=== PATIENT | female | born 1995 | race Caucasian/White ===

== ENCOUNTER 2019-07-18 08:48 | Emergency (ER) | payer OTHER ==
[2019-07-18 08:53] VITALS: TEMP 97.7
--- NOTE | 2019-07-18 09:08 | ED ---
Female Urogenital HPI - General Chief complaint: Urogenital Stated complaint: UTI Time Seen by Provider: 07/18/19 08:54 Source: patient, RN notes reviewed Mode of arrival: ambulatory Limitations: no limitations - History of Present Illness Initial comments: 24-year-old female presents emergency Department with chief complaint of dysuria. Patient states that she has very frequent and urgency urinating symptoms. Patient reports that she's had some flank pain that is intermittent. Denies any current nausea vomiting diarrhea constipation no fevers or chills denies any chance . Last mental cycle was 3 weeks ago. Patient states she was treated in June for urinary tract infection also. Patient denies any vaginal discharge, vaginal bleeding. - Related Data Home Medications Medication Instructions Recorded Confirmed 78/Iron/Folate 1/Dha 1 each PO DAILY 05/12/16 07/31/16 [Prenate Dha Softgel] Ferrous Sulfate [Iron (65 MG 325 mg PO DAILY 07/31/16 07/31/16 Elemental)] Previous Rx's Medication Instructions Recorded Cephalexin [Keflex] 500 mg PO Q8HR #30 cap 07/18/19 Allergies Allergy/AdvReac Type Severity Reaction Status Date / Time No Known Allergies Allergy Verified 07/18/19 08:53 Review of Systems ROS Statement: Those systems with pertinent positive or pertinent negative responses have been documented in the HPI. ROS Other: All systems not noted in ROS Statement are negative. Past Medical History Past Medical History: No Reported History History of Any Multi-Drug Resistant Organisms: None Reported Past Surgical History: No Surgical Hx Reported Past Anesthesia/Blood Transfusion Reactions: No Reported Reaction Past Psychological History: No Psychological Hx Reported Smoking Status: Former smoker Past Alcohol Use History: Occasional Past Drug Use History: None Reported - Past Family History Father Family Medical History: No Reported History General Exam Limitations: no limitations General appearance: alert, in no apparent distress Head exam: Present: atraumatic, normocephalic, normal inspection Eye exam: Present: normal appearance, PERRL, EOMI. Absent: scleral icterus, conjunctival injection, periorbital swelling Respiratory exam: Present: normal lung sounds bilaterally. Absent: respiratory distress, wheezes, rales, rhonchi, stridor Cardiovascular Exam: Present: regular rate, normal rhythm, normal heart sounds. Absent: systolic murmur, diastolic murmur, rubs, gallop, clicks GI/Abdominal exam: Present: soft, normal bowel sounds. Absent: distended, tenderness, guarding, rebound, rigid Back exam: Absent: CVA tenderness (R), CVA tenderness (L) Neurological exam: Present: alert Skin exam: Present: warm, dry, intact, normal color. Absent: rash Course Vital Signs 07/18/19 08:50 Temperature 97.7 F Pulse Rate 82 Respiratory 18 Rate Blood Pressure 108/72 O2 Sat by Pulse 98 Oximetry Medical Decision Making - Medical Decision Making 24-year-old female presented from for UTI symptoms. Patient's urinalysis reveal evidence of urinary tract infection will be started on antibiotics. Patient urine was cultured. - Lab Data Lab Results 07/18/19 07/18/19 Range/Units 08:57 08:57 Urine Color Yellow Urine Appearance Turbid H (Clear) Urine pH 5.5 (5.0-8.0) Ur Specific [place] 1.020 (1.001-1.035) Urine Protein 1+ H (Negative) Urine Glucose (UA) Negative (Negative) Urine Ketones Negative (Negative) Urine Blood Small H (Negative) Urine Nitrite Positive H (Negative) Urine Bilirubin Negative (Negative) Urine Urobilinogen <2.0 (<2.0) mg/dL Ur Leukocyte Esterase Large H (Negative) Urine WBC >182 H (0-5) /hpf Urine WBC Clumps Few H (None) /hpf Ur Squamous Epith Cells 2 (0-4) /hpf Urine Bacteria Many H (None) /hpf Urine Mucus Few H (None) /hpf Urine HCG, Qual Not Detected (Not Detectd) Disposition Clinical Impression: Urinary tract infection Disposition: HOME SELF-CARE Condition: Stable Instructions (If sedation given, give patient instructions): Urinary Tract Infection in Women (ED) Additional Instructions: Please return to the Emergency Department if symptoms worsen or any other concerns. Prescriptions: Cephalexin [Keflex] 500 mg PO Q8HR #30 cap Is patient prescribed a controlled substance at d/c from ED?: No Referrals: Nai Andujar MD [Primary Care Provider] - 1-2 days Time of Disposition: 09:36
[2019-07-18 09:18] LABS: Appearance,Urine Turbid (Clear); Bacteria,Urine Many /hpf; Bilirubin,Urine Negative (Negative); Blood,Urine Small (Negative); Color,Urine Yellow; Glucose,Urine (UA) Negative (Negative); Ketones,Urine Negative (Negative); Leukocyte Esterase,Urine Large (Negative); Mucus,Urine Few /hpf; Nitrite,Urine Positive (Negative); PH, Urine 5.5 (5.0-8.0); Protein,Urine 1+ (Negative); Squamous Epithelial Cell,Urine 2 /hpf (0-4); Urobilinogen,Urine <2.0 mg/dL (<2.0)
[2019-07-18 09:57] VITALS: BP 110/74; PULSE 80; RESP 16
== END 2019-07-18 09:41 | disposition home or self-care (01) ==
LOC: EC 08:48
DX: N39.0 Urinary tract infection, site not specified (principal); Z87.891 Personal history of nicotine dependence
CPT/HCPCS: 81001; 81025; 87077; 87086; 87186; 99283

== ENCOUNTER 2020-02-01 17:25 | Emergency (ER) | payer OTHER ==
[2020-02-01 17:35] VITALS: RESP 20; TEMP 98
[2020-02-01] MEDS ORDERED: KETOROLAC 30 MG/ML 1 ML VIAL IM STA (17:40)
--- NOTE | 2020-02-01 17:56 | XR ---
EXAMINATION TYPE: XR hand complete RT DATE OF EXAM: 02/01/2020 COMPARISON: 09/09/2010 HISTORY: Punched hard object TECHNIQUE: Three-view right hand FINDINGS: No acute fractures are evident. Joint spaces are preserved. There is some mild soft tissue swelling over the dorsum of the hand at the metacarpal phalangeal joint spaces. IMPRESSION: 1. Soft tissue swelling dorsum of the hand. 2. No acute osseous abnormality. 3. Follow-up exams can be performed 7-10 days from acute trauma for continued pain.
--- NOTE | 2020-02-01 18:31 | ED ---
Upper Extremity HPI - General Chief Complaint: Extremity Injury, Upper Stated Complaint: R Hand Injury Time Seen by Provider: 02/01/20 17:36 Source: patient Mode of arrival: ambulatory Limitations: no limitations - History of Present Illness Initial Comments: Patient is a 24-year-old female presenting to the emergency room with a chief complaint of right hand injury. Patient states last night she was frustrated and punched a chair. Patient reports most of the swelling is located at T third MCP joint states there was initial ecchymosis which is gradually resolve. States she immediately applied ice compress which helped swelling. Denies any numbness or tingling. He reports limited range of motion due to pain. - Related Data Previous Rx's Medication Instructions Recorded Cephalexin [Keflex] 500 mg PO Q8HR #30 cap 07/18/19 Allergies Allergy/AdvReac Type Severity Reaction Status Date / Time No Known Allergies Allergy Verified 02/01/20 17:35 Review of Systems ROS Statement: Those systems with pertinent positive or pertinent negative responses have been documented in the HPI. ROS Other: All systems not noted in ROS Statement are negative. Past Medical History Past Medical History: No Reported History History of Any Multi-Drug Resistant Organisms: None Reported Past Surgical History: No Surgical Hx Reported Past Anesthesia/Blood Transfusion Reactions: No Reported Reaction Past Psychological History: No Psychological Hx Reported Smoking Status: Former smoker Past Alcohol Use History: Daily Past Drug Use History: None Reported - Past Family History Father Family Medical History: No Reported History General Exam Limitations: no limitations General appearance: alert, in no apparent distress Head exam: Present: atraumatic, normocephalic, normal inspection Eye exam: Present: normal appearance, PERRL Pupils: Present: normal accommodation ENT exam: Present: normal exam Neck exam: Present: normal inspection, full ROM Respiratory exam: Present: normal lung sounds bilaterally Cardiovascular Exam: Present: regular rate, normal rhythm, normal heart sounds Extremities exam: Present: tenderness (Tenderness at the site of injury), normal capillary refill, other (+2 ulnar and radial pulses bilateral.). Absent: normal inspection (Mild swelling at the third MCP.), full ROM (Limited range of motion due to pain.) Back exam: Present: normal inspection, full ROM Neurological exam: Present: alert, oriented X3 Psychiatric exam: Present: normal affect, normal mood Skin exam: Present: warm, dry, intact, normal color Course Vital Signs 02/01/20 02/01/20 17:31 18:47 Temperature 98.0 F 98.0 F Pulse Rate 115 H 110 H Respiratory 20 20 Rate Blood Pressure 118/77 116/78 O2 Sat by Pulse 100 98 Oximetry Medical Decision Making - Medical Decision Making Patient is a 24-year-old female presenting to the emergency Department with [facility] complaint of right hand injury. Patient punched a chair last night. No exam patient does have limited range of motion but is neurovascularly intact. X-ray reveals no acute fractures or dislocations. Scar wrap was applied. Patient advised to alternate between Tylenol and Motrin for pain control. She was advised to keep the hand elevated and apply ice compresses to minimize symptoms. Advised to obtain repeat x-rays in 7-10 days. Return parameters thoroughly discussed with patient was understanding and agreeable. Case discussed with physician. Disposition Clinical Impression: Contusion of hand, right, Right hand pain, Injury of right hand Disposition: HOME SELF-CARE Condition: Stable Instructions (If sedation given, give patient instructions): Hand Sprain (ED) Additional Instructions: Apply ice compress, alternate between Tylenol and Motrin for pain control. Return to emergency department if symptoms worsen. Is patient prescribed a controlled substance at d/c from ED?: No Referrals: Nai Andujar MD [Primary Care Provider] - 1-2 days Time of Disposition: 18:31
[2020-02-01 18:48] VITALS: BP 116/78; PULSE 110
== END 2020-02-01 18:47 | disposition home or self-care (01) ==
LOC: EC 17:25
DX: S60.221A Contusion of right hand, initial encounter (principal); Z87.891 Personal history of nicotine dependence; W22.03XA Walked into furniture, initial encounter; Y93.89 Activity, other specified; Y92.009 Unspecified place in unspecified non-institutional (private) residence as the place of occurrence of the external cause
CPT/HCPCS: 73130; 99283; 96372; J1885

== ENCOUNTER 2021-02-11 17:11 | Outpatient (CLI) | payer OTHER ==
[2021-02-11 18:44] VITALS: BP 130/83; PULSE 82; RESP 16; TEMP 97.3
--- NOTE | 2021-03-25 07:39 | P.MSEPDOC ---
Presenting Problems - Arrival Data Date of Arrival on Unit: 02/11/21 Time of Arrival on Unit: 17:11 Mode of Transport: Ambulatory - Complaint OB-Reason for Admission/Chief Complaint: Possible Onset of Labor Medical History - Information : 3 Para: 2 Term: 2 : 0 Abortions: Spontaneous or Elective: 0 Number of Living Children: 2 - Gestational Age Gestational Age by MAYURI (wks/days): 37 Weeks and 5 Days Review of Systems - Review of Systems Constitutional: No problems Breast: No problems ENT: No problems Cardiovascular: No problems Respiratory: No problems Gastrointestinal: No problems Genitourinary: No problems Musculoskeletal: No problems Neurological: No problems Skin: No problems Vital Signs - Temperature Temperature: 97.3 F Temperature Source: Temporal Artery Scan - Pulse Right Pulse Rate: 82 Pulse Assessment Method: Automatic Cuff - Respirations Respiratory Rate: 16 Oxygen Delivery Method: Room Air O2 Sat by Pulse Oximetry: 99 - Blood Pressure Right Arm Blood Pressure: 130/83 Blood Pressure Mean: 98 Blood Pressure Source: Automatic Cuff Medical Screen Scoring (Pre) - Cervical Exam Dilation: 4-7 cm = 2 Effacement: More than 50% = 2 Membranes: Intact - Uterine Contractions Frequency: N/A Duration: N/A Intensity: N/A - Maternal Vital Signs Maternal Temperature: N/A Maternal Blood Pressure: N/A Signs of Preeclampsia: N/A Maternal Respirations: N/A - Maternal Trauma Maternal Trauma: N/A - Assessment - Baby A Baseline FHR: 150 Heart Rate - NICHD Category: Category I (Normal) = 0 NST: Reactive Position: N/A Station: N/A - Total Score - Baby A Total Score - Baby A: 4 - Total Score - Baby B Total Score - Baby B: 4 - Total Score - Baby C Total Score - Baby C: 4 - Level of Risk - Baby A Level of Risk - Baby A: Low (0-5) - Level of Risk - Baby B Level of Risk - Baby B: Low (0-5) - Level of Risk - Baby C Level of Risk - Baby C: Low (0-5) Physician Notification (Pre) - Physician Notified Physician Notified Date: 02/11/21 Physician Notified Time: 18:28 New Order Received: Yes (discharge to keep appt as scheduled) Disposition - Disposition OB Disposition: Physician follow up in office, Discharge to home Discharge Date: 02/11/21 Discharge Time: 18:30 I agree with the RN Medical Screening Exam: Yes Case reviewed; plan agreed upon as documented in EMR&OBIX.: Yes Diagnosis: FALSE LABOR AT OR AFTER 37 COMPLETED WEEKS OF GESTATION Additional Diagnoses: Patient was neither seen nor examined by me
== END 2021-02-11 18:30 | disposition home or self-care (01) ==
LOC: FBPOP 17:11
PROVIDERS: ATTEND Obstetrics & Gynecology
DX: O47.1 False labor at or after 37 completed weeks of gestation (principal); Z3A.37 37 weeks gestation of pregnancy; Z87.891 Personal history of nicotine dependence
CPT/HCPCS: 59025; G0463; 99213

== ENCOUNTER 2021-02-15 16:17 | Outpatient (CLI) | payer OTHER ==
[2021-02-15 17:33] LABS: Basophils % (A) 0 %; Eosinophils % (A) 0 %; HGB 10.4 gm/dL (11.4-16.0); Hypochromasia Slight; Lymphocytes # (A) 0.9 k/uL (1.0-4.8); Lymphocytes % (A) 15 %; MCH 26.5 pg (25.0-35.0); MCHC 31.5 g/dL (31.0-37.0); MCV 84.1 fL (80.0-100.0); Mean Platelet Volume 13.9; Monocytes # (A) 0.2 k/uL (0-1.0); Monocytes % (A) 4 %; Neutrophils # (A) 4.8 k/uL (1.3-7.7); Neutrophils % (A) 79 %; Platelet Count 141 k/uL (150-450); RBC 3.92 m/uL (3.80-5.40); RDW 15.6 % (11.5-15.5); WBC 6.1 k/uL (3.8-10.6)
[2021-02-15 17:36] LABS: Creatinine,Urine Random 144.1 mg/dL; Protein/Creatinine Ratio,Urine 0.069
[2021-02-15 17:39] LABS: Appearance,Urine Clear (Clear); Bilirubin,Urine Negative (Negative); Blood,Urine Negative (Negative); Color,Urine Yellow; Glucose,Urine (UA) Negative (Negative); Ketones,Urine Negative (Negative); Leukocyte Esterase,Urine Large (Negative); Mucus,Urine Few /hpf; Nitrite,Urine Negative (Negative); Protein,Urine Trace (Negative); Specific Gravity,Urine 1.019 (1.001-1.035); Squamous Epithelial Cell,Urine 1 /hpf (0-4); Urobilinogen,Urine <2.0 mg/dL (<2.0); WBC,Urine 9 /hpf (0-5)
[2021-02-15 17:40] LABS: ALT 27 U/L (4-34); AST 36 U/L (14-36); African American GFR (CKD) >90 (>60 ml/min/1.73 sqM); Blood Urea Nitrogen 12 mg/dL (7-17); LDH 502 U/L (313-618); Non-African American GFR(CKD) >90 (>60 ml/min/1.73 sqM); Uric Acid 7.4 mg/dL (3.7-7.4)
[2021-02-15 17:41] LABS: Large Platelets Present
[2021-02-15 18:56] VITALS: BP 130/87; PULSE 69; RESP 16; TEMP 97.6
--- NOTE | 2021-03-12 07:38 | P.MSEPDOC ---
Presenting Problems - Arrival Data Date of Arrival on Unit: 02/15/21 Time of Arrival on Unit: 16:17 Mode of Transport: Ambulatory - Complaint OB-Reason for Admission/Chief Complaint: Possible Onset of Labor, Headache, Visual Disturbances, Dizziness Comment: nausea,dizziness,headache, contractions Medical History - Information : 3 Para: 2 Term: 2 : 0 Abortions: Spontaneous or Elective: 0 Number of Living Children: 2 - Gestational Age Gestational Age by MAYURI (wks/days): 38 Weeks and 2 Days Review of Systems - Review of Systems Constitutional: No problems Breast: No problems ENT: No problems Cardiovascular: No problems Respiratory: No problems Gastrointestinal: No problems Genitourinary: No problems Musculoskeletal: No problems Neurological: Dizziness Skin: No problems Vital Signs - Temperature Temperature: 97.6 F Temperature Source: Temporal Artery Scan - Pulse Right Sitting Brachial Pulse Rate: 69 Pulse Assessment Method: Automatic Cuff - Respirations Respiratory Rate: 16 Oxygen Delivery Method: Room Air O2 Sat by Pulse Oximetry: 100 - Blood Pressure Right Arm Sitting Blood Pressure: 130/87 Blood Pressure Mean: 101 Blood Pressure Source: Automatic Cuff Medical Screen Scoring (Pre) - Cervical Exam Dilation: 4-7 cm = 2 Effacement: More than 50% = 2 Membranes: Intact - Uterine Contractions Frequency: > or = 36 weeks =2 Duration: > 40 seconds = 2 - Maternal Trauma Maternal Trauma: N/A - Assessment - Baby A Baseline FHR: 135 Heart Rate - NICHD Category: Category I (Normal) = 0 NST: Reactive - Total Score - Baby A Total Score - Baby A: 8 - Total Score - Baby B Total Score - Baby B: 8 - Total Score - Baby C Total Score - Baby C: 8 - Level of Risk - Baby A Level of Risk - Baby A: Medium (6-9) - Level of Risk - Baby B Level of Risk - Baby B: Medium (6-9) - Level of Risk - Baby C Level of Risk - Baby C: Medium (6-9) Physician Notification (Pre) - Physician Notified Physician Notified Date: 02/15/21 Physician Notified Time: 18:14 New Order Received: Yes (d/c with 24 hour instructions) - Notification Comment Comment: Instructed to return Thursday with urine for blood pressure check and nst Disposition - Disposition OB Disposition: Triage, Discharge to home, Written follow up instructions reviewed Discharge Date: 02/15/21 Discharge Time: 18:27 I agree with the RN Medical Screening Exam: Yes Case reviewed; plan agreed upon as documented in EMR&OBIX.: Yes Diagnosis: headache, rle out labor
== END 2021-02-15 18:27 | disposition home or self-care (01) ==
LOC: FBPOP 16:17
PROVIDERS: ATTEND Obstetrics & Gynecology
DX: O26.893 Other specified pregnancy related conditions, third trimester (principal); R51.9 Headache, unspecified; Z3A.38 38 weeks gestation of pregnancy; Z87.891 Personal history of nicotine dependence
CPT/HCPCS: 59025; 82570; 84156; 82565; 83615; 84450; 84460; 84520; 84550; 85025; 81001; 87635; G0463; 99215

== ENCOUNTER 2021-02-17 10:42 | Outpatient (CLI) | payer OTHER ==
[2021-02-17 11:21] VITALS: PULSE 106; RESP 18; TEMP 97.9
[2021-02-17 11:23] VITALS: BP 136/73
[2021-02-17 11:50] LABS: Total Volume 24 Hour,Urine 1725 mls (800-1800)
[2021-02-17 12:09] LABS: Total Protein 24 Hour,Urine 190 mg/24hr (42.0-225.0)
== END 2021-02-17 11:02 | disposition home or self-care (01) ==
LOC: FBPOP 10:42
PROVIDERS: ATTEND Obstetrics & Gynecology
DX: O26.893 Other specified pregnancy related conditions, third trimester (principal); Z3A.38 38 weeks gestation of pregnancy
CPT/HCPCS: 59025; 81050; 84156; G0463; 99213

== ENCOUNTER 2021-02-20 06:04 | Inpatient (IN) | payer OTHER ==
[2021-02-20] MEDS ORDERED: METHYLERGONOVINE 0.2 MG/ML 1 ML AMP IM PRN (06:17)
[2021-02-20] MEDS ORDERED: TERBUTALINE 1 MG/ML VIAL SQ PRN (06:17)
[2021-02-20] MEDS ORDERED: CARBOPROST TROMETHAMINE 250 MCG/ML 1 ML AMP IM PRN (06:17)
[2021-02-20] MEDS ORDERED: OXYTOCIN 10 UNIT/ML 1 ML VIAL IM PRN (06:17)
[2021-02-20] MEDS ORDERED: LIDOCAINE 0.5% (PF) 5 MG/ML (50 ML SDV) SQ PRN (06:17)
[2021-02-20] MEDS: LACTATED RINGERS 1,000 ML IV SCH ×2 (06:30→08:18)
[2021-02-20 06:34] LABS: Basophils % (A) 0 %; Eosinophils % (A) 1 %; HGB 10.5 gm/dL (11.4-16.0); Hypochromasia Slight; Lymphocytes # (A) 1.4 k/uL (1.0-4.8); Lymphocytes % (A) 21 %; MCH 27.7 pg (25.0-35.0); MCHC 33.7 g/dL (31.0-37.0); MCV 82.2 fL (80.0-100.0); Mean Platelet Volume 13.4; Monocytes # (A) 0.3 k/uL (0-1.0); Monocytes % (A) 4 %; Neutrophils # (A) 4.9 k/uL (1.3-7.7); Neutrophils % (A) 73 %; Platelet Count 140 k/uL (150-450); RBC 3.78 m/uL (3.80-5.40); RDW 15.6 % (11.5-15.5); WBC 6.8 k/uL (3.8-10.6)
[2021-02-20] MEDS: OXYTOCIN 30 UNITS/500 ML NS 30 UNIT in SALINE 1 500ML.BAG IV SCH ×2 (07:06→12:24)
--- NOTE | 2021-02-20 07:56 | P.HPOB ---
History of Present Illness H&P Date: 02/20/21 Chief Complaint: Here for induction of labor with advanced cervical dilation This is a 25-year-old white female 3 para 2002 EDC 02/27/2021 at 39 weeks gestation. Patient has advanced cervical dilation and therefore presents today for induction. Fetus is been active throughout . She denies vaginal bleeding or fluid leakage. Past medical history is significant for heart shaped uterus. Past surgical history is negative. Current medications vitamins daily. ALLERGIES none known. Family history significant for heart disease, hypertension, diabetes. Reproductive history normal spontaneous vaginal deliveries 2, unremarkable. Social history patient is a former tobacco smoker, states she quit with . She denies alcohol or other drug use. She is single, father of the baby is involved and present at the bedside. history is significant for blood type A+, rubella status immune. VDRL testing, urine culture, hepatitis B surface antigen, HIV testing, gonorrhea and chlamydia cultures, group B strep cultures all negative. One-hour Glucola within normal limits. On exam patient is 5 foot 7 inches, 142 pounds, blood pressure 147/83 on admission with a pulse of 96. The general physical exam is within normal limits. Extremities reveal no edema. heart rate is consistent with reactive NST. Cervix is 6 cm dilated, 80% effaced, -1 station, vertex presentation, anterior and soft. Artificial amniorrhexis reveals clear fluid. Uterine contractions are occurring irregularly. Impression: 39 week intrauterine , advanced cervical dilation, here for induction, all signs reassuring. Plan: Oxytocin augmentation as needed. Close maternal and surveillance. Analgesic options reviewed with the patient. Anticipate normal spontaneous vaginal delivery. Review of Systems Constitutional: Reports as per HPI Past Medical History Past Medical History: No Reported History History of Any Multi-Drug Resistant Organisms: None Reported Past Surgical History: No Surgical Hx Reported Past Anesthesia/Blood Transfusion Reactions: No Reported Reaction Past Psychological History: No Psychological Hx Reported Smoking Status: Never smoker Past Alcohol Use History: None Reported Past Drug Use History: None Reported - Past Family History Father Family Medical History: No Reported History Medications and Allergies Home Medications Medication Instructions Recorded Confirmed Type Pnv No.95/Ferrous Fum/Folic AC 1 each PO DAILY 02/11/21 02/20/21 History [ Multivitamin Tablet] Cephalexin [Keflex] 500 mg PO Q12HR 02/17/21 02/20/21 History Allergies Allergy/AdvReac Type Severity Reaction Status Date / Time No Known Allergies Allergy Verified 02/20/21 06:16 Exam Vital Signs Temp Pulse Resp BP 02/20/21 06:20 96.4 F L 96 16 147/83 Intake and Output 02/19/21 02/20/21 02/20/21 22:59 06:59 14:59 Other: Weight 64.41 kg See dictation under HPI. Results Result Diagrams: 02/20/21 06:00 Abnormal Lab Results - Last 24 Hours (Table) 02/20/21 Range/Units 06:00 RBC 3.78 L (3.80-5.40) m/uL Hgb 10.5 L (11.4-16.0) gm/dL Hct 31.0 L (34.0-46.0) % RDW 15.6 H (11.5-15.5) % Plt Count 140 L (150-450) k/uL Assessment and Plan Assessment: 39 week intrauterine , advanced cervical dilation, here for induction of labor. All signs reassuring. Plan: Oxytocin augmentation as might be needed. Close maternal and surveill ance. Analgesic options reviewed. Anticipate normal spontaneous vaginal delivery. Time with Patient: Less than 30
[2021-02-20] MEDS ORDERED: ROPIVACAINE 5MG/ML 20ML VIAL ONE (08:05)
[2021-02-20] MEDS ORDERED: fentaNYL (PF) 50 MCG/ML 5 ML AMP ONE (08:05)
[2021-02-20] MEDS ORDERED: SODIUM CHLORIDE 0.9% 100 ML BAG ONE (08:05)
[2021-02-20] MEDS ORDERED: diphenhydrAMINE 25 MG CAP PO PRN (10:02)
[2021-02-20] MEDS ORDERED: diphenhydrAMINE 50 MG/ML 1 ML VIAL IVP PRN ×2 (10:02)
[2021-02-20] MEDS ORDERED: ZOLPIDEM 5 MG TAB PO PRN (10:02)
[2021-02-20] MEDS ORDERED: diphenhydrAMINE ELIXIR 25 MG/10 ML CUP PO PRN (10:02)
[2021-02-20] MEDS ORDERED: SIMETHICONE 80 MG CHEWABLE PO PRN (10:02)
[2021-02-20] MEDS ORDERED: HYDROCORTISONE 2.5% RECTAL CREAM 30 GM TUBE RECTAL PRN (10:02)
[2021-02-20] MEDS ORDERED: diphenhydrAMINE 50 MG CAP PO PRN (10:02)
[2021-02-20] MEDS ORDERED: LANOLIN CREAM 5 GM TUBE TOPICAL PRN (10:02)
[2021-02-20] MEDS ORDERED: BENZOCAINE/MENTHOL SPRAY 1 GM/SPRAY AEROSOL TOPICAL PRN (10:02)
--- NOTE | 2021-02-20 10:02 | P.PROBDLV ---
Vaginal Delivery Note - . Vaginal Delivery Note: This is a 25-year-old white female 3 para 2001 EDC 02/27/2021 at 39 weeks gestation who presented for induction with favorable multiparous cervix and advanced cervical dilation. Group B strep cultures are negative, blood type is A+, rubella status immune. Please see dictated history and physical for details. Artificial amniorrhexis revealed clear fluid. Oxytocin was started and titrated per hospital protocol. Epidural was placed per her request. She progressed well through the first stage of labor, heart tones reassuring throughout first and second stages. She was judged to be completely dilated at 0935 hours and began the second stage of labor at that time. Perineal body was prepped and draped in usual sterile fashion. With excellent maternal expulsive efforts the 's head delivered occiput anterior and she restituted accordingly. There was a knuckle of umbilical cord presenting along side the infant's vertex. The left or anterior shoulder was gently delivered from underneath the pubic symphysis at which time the oropharynx, nasopharynx, and external nares were all bulb suctioned. Patient was officially delivered of a liveborn female at 0947 hours. Umbilical cord was doubly clamped and ligated, she was handed to waiting nurses for evaluation where scores of 9 and 9 at one and 5 minutes respectively were given. The placenta delivered spontaneously with active management at 0950 hours. It was inspected and noted to be intact with a peripherally inserted umbilical cord. The cervix, vagina, perineal body and perineal all prepped and draped now and reinspected carefully. There are no lacerations or defects. Fundus is firm and in the midline, symmetric and 18 week size. Total estimated blood loss 250 mL's. weighed 3485 g or 7 lbs. 11 oz. Patient is allowed to begin the bonding experience with her infant daughter.
[2021-02-20] MEDS: IBUPROFEN 600 MG TAB PO SCH ×2 (10:30→18:16)
[2021-02-20] MEDS: ACETAMINOPHEN TAB 325 MG TAB PO PRN ×2 (15:51→19:47)
[2021-02-20] MEDS: SENNOSIDES-DOCUSATE SODIUM 1 EACH TAB PO SCH (19:46)
[2021-02-21] MEDS: IBUPROFEN 600 MG TAB PO SCH ×3 (02:41→06:49)
[2021-02-21] MEDS: SENNOSIDES-DOCUSATE SODIUM 1 EACH TAB PO SCH (07:51)
--- NOTE | 2021-02-21 07:55 | P.DS ---
Providers Date of admission: 02/20/21 06:04 Expected date of discharge: 02/21/21 Attending physician: Nida Pendleton Primary care physician: Stated None Hospital Course: This is a 25-year-old white female 3 para 2002 EDC 02/27/2021 at 39 weeks gestation. Patient presented for induction with advanced cervical dilation, unremarkable, group B strep cultures negative, rubella status immune, blood type A+. Please see dictated history and physical for details. Patient went on to swiftly deliver a liveborn female infant with scores of 9 and 9 at one and 5 minutes respectively. There was a loop of cord presenting next to the baby's neck. No episiotomy or laceration was encountered. Estimated blood loss 250 mL's. weight 3485 g or 7 lbs. 11 oz. Please see dictated delivery note for details. This morning the patient is doing well. She is voiding, and bleeding, passing flatus without difficulty. Vital signs are stable and she is afebrile. Fundus is firm and in the midline, symmetric and 18 week size. Extremities are negative for edema. Breast-feeding is going well. is doing well. Patient is judged to be in very good condition for discharge home. She will follow-up in the office with me in 5 weeks. She is planning a tubal ligation and we will schedule this through the office at that time. She is reminded no intercourse, tampons or douching. She will use ov [id number] Advil or Aleve, or ibuprofen as needed for pain. Continue taking vitamin daily. Prescription for a double electric breast pump is provided. Call with any fevers shakes or chills, foul smelling or copious lochia, with the passage of large blood clots, with any issues breast-feeding, or indeed with any concerns. Warm will follow-up with commodities requirements analyst as per recommendations. Assessment: Doing well day #1 Patient Condition at Discharge: Good Plan - Discharge Summary Discharge Rx Participant: No New Discharge Prescriptions: No Action Pnv No.95/Ferrous Fum/Folic AC [ Multivitamin Tablet] 1 each PO DAILY Cephalexin [Keflex] 500 mg PO Q12HR Discharge Medication List Pnv No.95/Ferrous Fum/Folic AC [ Multivitamin Tablet] 1 each PO DAILY 02/11/21 [History] Cephalexin [Keflex] 500 mg PO Q12HR 02/17/21 [History] Follow up Appointment(s)/Referral(s): Nida Pendleton MD [STAFF PHYSICIAN] - 6 Weeks Discharge Disposition: HOME SELF-CARE
[2021-02-21 08:02] VITALS: RESP 16
[2021-02-21] MEDS: ACETAMINOPHEN TAB 325 MG TAB PO PRN (11:15)
[2021-02-21 12:23] VITALS: BP 129/84; PULSE 65; TEMP 98.3
== END 2021-02-21 12:30 | disposition home or self-care (01) | DRG 807 ==
LOC: 4FBP 06:04
PROVIDERS: ADMIT Obstetrics & Gynecology; ATTEND Obstetrics & Gynecology
PROC: 3E0R3BZ Introduction of Anesthetic Agent into Spinal Canal, Percutaneous Approach (ICD-10-PCS; principal; 2021-02-20)
PROC: 10907ZC Drainage of Amniotic Fluid, Therapeutic from Products of Conception, Via Natural or Artificial Opening (ICD-10-PCS; principal; 2021-02-20)
PROC: 3E033VJ Introduction of Other Hormone into Peripheral Vein, Percutaneous Approach (ICD-10-PCS; principal; 2021-02-20)
PROC: 10E0XZZ Delivery of Products of Conception, External Approach (ICD-10-PCS; principal; 2021-02-20)
PROC: 00HU33Z Insertion of Infusion Device into Spinal Canal, Percutaneous Approach (ICD-10-PCS; principal; 2021-02-20)
DX: O34.33 Maternal care for cervical incompetence, third trimester (principal); Z37.0 Single live birth; Z3A.39 39 weeks gestation of pregnancy; Z79.899 Other long term (current) drug therapy; Z87.891 Personal history of nicotine dependence; Z83.3 Family history of diabetes mellitus; Z82.49 Family history of ischemic heart disease and other diseases of the circulatory system
CPT/HCPCS: 59025; 81050; 84156; 85025; 86850; 86900; 86901; 99213; 99215

== ENCOUNTER → 2022-01-02 | Outpatient (CLI) | payer OTHER ==
--- NOTE | 2022-01-02 13:47 | XR ---
Right foot HISTORY: [id number] HAND INJURY, RT FOOT PAIN 3 views of the right foot Bone mineralization, joint spaces and alignment are maintained. IMPRESSION: No fracture or dislocation.
--- NOTE | 2022-01-02 13:49 | XR ---
Right hand HISTORY: [id number] HAND INJURY, RT FOOT PAIN 4 views of the right hand Correlation to prior exam 02/01/2020 Bone mineralization, joint spaces and alignment are maintained, stable. Sclerotic focus in the distal third metacarpal is unchanged. No fracture or dislocation. IMPRESSION: No acute abnormality
== END | disposition home or self-care (01) ==
LOC: RADXRYALE 11:41
PROVIDERS: ATTEND Internal Medicine
DX: S69.91XA Unspecified injury of right wrist, hand and finger(s), initial encounter (principal); M79.671 Pain in right foot; X58.XXXA Exposure to other specified factors, initial encounter

== ENCOUNTER → 2022-02-19 | Outpatient (CLI) | payer OTHER ==
--- NOTE | 2022-02-19 13:56 | XR ---
EXAMINATION TYPE: XR chest 2V DATE OF EXAM: 02/19/2022 COMPARISON: Chest x-ray 02/17/2011 HISTORY: Chest wall pain, cough TECHNIQUE: Frontal and lateral views of the chest are obtained. FINDINGS: There is no focal air space opacity, pleural effusion, or pneumothorax seen. The cardiac silhouette size is within normal limits. The osseous structures are intact. IMPRESSION: No acute cardiopulmonary process.
--- NOTE | 2022-02-19 14:13 | XR ---
Left RIBS HISTORY: Pain, cough 4 views the left ribs There is no evident displaced rib fracture. Bone mineralization maintained. No evident left pneumotho rax or pleural effusion. IMPRESSION: No acute abnormality, bone scan could be performed if occult fractures suspected clinical ly.
== END | disposition home or self-care (01) ==
LOC: RADXRYALE 11:48
PROVIDERS: ATTEND Internal Medicine
DX: R07.82 Intercostal pain (principal); R05.9 Cough, unspecified
CPT/HCPCS: 71046

== ENCOUNTER 2022-04-26 15:17 | Emergency (ER) | payer OTHER ==
[2022-04-26 15:22] VITALS: BP 133/100; PULSE 100; RESP 16; TEMP 98.6
--- NOTE | 2022-04-26 15:41 | ED ---
General Adult HPI - General Chief complaint: Extremity Injury, Lower Stated complaint: fall/R Ankle Injury Time Seen by Provider: 04/26/22 15:23 Source: patient Mode of arrival: ambulatory Limitations: no limitations - History of Present Illness Initial comments: 26-year-old female presents to the emergency room for right foot pain. About an hour prior to arrival patient was walking across her yard when she accidentally stepped in a hole injuring her right foot. Patient states she heard and felt a pop. Patient states it is very painful to walk on. It also hurts up into her ankle. She did not sustain any other injuries. She did not hit her head. Patient has no other complaints at this time including shortness of breath, chest pain, abdominal pain, nausea or vomiting, headache, or visual changes. - Related Data Home Medications Medication Instructions Recorded Confirmed Pnv No.95/Ferrous Fum/Folic AC 1 each PO DAILY 02/11/21 02/20/21 [ Multivitamin Tablet] Cephalexin [Keflex] 500 mg PO Q12HR 02/17/21 02/20/21 Allergies Allergy/AdvReac Type Severity Reaction Status Date / Time No Known Allergies Allergy Verified 04/26/22 15:22 Review of Systems ROS Statement: Those systems with pertinent positive or pertinent negative responses have been documented in the HPI. ROS Other: All systems not noted in ROS Statement are negative. Past Medical History Past Medical History: No Reported History History of Any Multi-Drug Resistant Organisms: None Reported Past Surgical History: No Surgical Hx Reported Past Anesthesia/Blood Transfusion Reactions: No Reported Reaction Past Psychological History: No Psychological Hx Reported Smoking Status: Never smoker Past Alcohol Use History: None Reported Past Drug Use History: None Reported - Past Family History Father Family Medical History: No Reported History General Exam Limitations: no limitations General appearance: alert, in no apparent distress Head exam: Present: atraumatic Eye exam: Present: normal appearance, PERRL, EOMI. Absent: scleral icterus, conjunctival injection ENT exam: Present: normal exam, mucous membranes moist Neck exam: Present: normal inspection, full ROM. Absent: tenderness Respiratory exam: Absent: wheezes Extremities exam: Present: normal capillary refill (Capillary refill less than 2 seconds, DP pulse 2+ right lower extremity.), other (Patient has a 5 cm x 5 cm contusion noted to the dorsal lateral right foot. No tenderness of the fifth metatarsal. There is some tenderness along the third and fourth dorsal metatarsals. No swelling to the plantar aspect of the foot. No ankle edema or ecchymosis.) Course Vital Signs 04/26/22 15:19 Temperature 98.6 F Pulse Rate 100 Respiratory 16 Rate Blood Pressure 133/100 O2 Sat by Pulse 99 Oximetry Procedures - Orthopedic Splinting/Casting Injury #1 Side: right Lower Extremity Injury Location: short leg Lower Extremity Immobilizer: posterior splint Additional Comments: NV status intact after splint applied. Medical Decision Making - Medical Decision Making Vitals are stable. HPI and physical exam as documented. X-ray of the right foot and ankle are negative for fracture or dislocation. Given degree of swelling and bruising patient was splinted and will follow up with orthopedics. She was given prescription for crutches. Disposition Clinical Impression: Foot contusion, Foot pain Disposition: HOME SELF-CARE Condition: Good Instructions (If sedation given, give patient instructions): Foot Contusion (ED) Additional Instructions: Take Motrin and Tylenol for pain. Rest ice and elevate the right foot. Follow- up with orthopedics. Return to the emergency room for any worsening symptoms. Is patient prescribed a controlled substance at d/c from ED?: No Referrals: Ingrid Campos MD [Primary Care Provider] - 1-2 days Mahin Gan MD [Medical Doctor] - 1-2 days Time of Disposition: 16:23
--- NOTE | 2022-04-26 15:59 | XR ---
EXAMINATION TYPE: XR ankle complete RT DATE OF EXAM: 04/26/2022 COMPARISON: NONE HISTORY: Pain. Fall TECHNIQUE: 3 views FINDINGS: Ankle mortise is anatomic. I see no fracture nor dislocation. Joint spaces are normal. IMPRESSION: Negative right ankle exam. No fracture.
--- NOTE | 2022-04-26 16:01 | XR ---
EXAMINATION TYPE: XR foot complete RT DATE OF EXAM: 04/26/2022 COMPARISON: NONE HISTORY: Pain TECHNIQUE: 3 views FINDINGS: Metatarsals are intact and I see no fracture nor dislocation. Joint spaces are normal. IMPRESSION: Negative right foot exam. No fracture.
== END 2022-04-26 17:06 | disposition home or self-care (01) ==
LOC: EC 15:17
DX: S90.31XA Contusion of right foot, initial encounter (principal); W22.8XXA Striking against or struck by other objects, initial encounter; Y93.01 Activity, walking, marching and hiking
CPT/HCPCS: 29515; 99283

== ENCOUNTER → 2022-08-12 | Outpatient (CLI) | payer OTHER ==
--- NOTE | 2022-08-12 12:07 | XR ---
EXAM TYPE: LUMBAR SPINE X RAY SERIES COMPARISON: NONE HISTORY: Left-sided sciatica TECHNIQUE: 4 views are submitted. FINDINGS: Alignment is anatomic. The pedicles are intact. The transverse processes are intact. There is no s pondylolysis or spondylolisthesis. Facet arthropathy L5-S1. IMPRESSION: 1. Facet arthropathy L5-S1. If concern for disc herniation correlate with MRI.
== END | disposition home or self-care (01) ==
LOC: RADXRYALE 11:52
PROVIDERS: ATTEND Internal Medicine
DX: M47.817 Spondylosis without myelopathy or radiculopathy, lumbosacral region (principal)
CPT/HCPCS: 72110

== ENCOUNTER → 2022-10-14 | Outpatient (CLI) | payer OTHER ==
--- NOTE | 2022-10-15 16:19 | US ---
EXAMINATION TYPE: US pelvic complete DATE OF EXAM: 10/14/2022 COMPARISON: NONE CLINICAL HISTORY: R10.2 PELVIC AND PERINEAL PAIN. TECHNIQUE: Transabdominal (TA). Transabdominal sonographic images of the pelvis were acquired. Tra nsvaginal sonographic images were medically necessary to better assess the following anatomy: Date of LMP: 09/25/22 EXAM MEASUREMENTS: Uterus: 9.6 x 4.3 x 6.2 cm Endometrial Stripe: 0.7 cm Right Ovary: 1.8 x 1.2 x 1.3 cm Left Ovary: 3.9 x 3.7 x 3.5 cm 1. Uterus: Anteverted, probable cyst measuring 0.7 x 0.5 x 0.7cm 2. Endometrium: wnl 3. Right Ovary: wnl 4. Left Ovary: 3.5 x 3.0 x 3.3cm 5. Bilateral Adnexa: wnl 6. Posterior cul-de-sac: wnl IMPRESSION: 1. Left ovarian cyst. Follow-up exam in 6 weeks following the next normal menstrual period is recomme nded. 2. Small hypoechoic lesion within the body of the posterior uterus. This could be followed.
== END | disposition home or self-care (01) ==
LOC: RADUSWWP 16:09
PROVIDERS: ATTEND Internal Medicine
DX: N83.202 Unspecified ovarian cyst, left side (principal); N85.9 Noninflammatory disorder of uterus, unspecified
CPT/HCPCS: 76856

== ENCOUNTER → 2022-11-27 | Outpatient (CLI) | payer OTHER ==
--- NOTE | 2022-11-27 12:27 | US ---
EXAMINATION TYPE: US pelvis complete transvag DATE OF EXAM: 11/27/2022 COMPARISON: US 2021 CLINICAL HISTORY: R93.89 ABN PELVIC US. Patient has some pelvic pain, but it is less than when she ca me in for her last ultrasound. TECHNIQUE: Transvaginal (TV) and Transabdominal (TA) . Transabdominal sonographic images of the pel vis were acquired. Transvaginal sonographic images were medically necessary to better assess the fol lowing anatomy: Ovaries Date of LMP: Unknown per patient. EXAM MEASUREMENTS: Uterus: 8.3 x 5.8 x 3.8 cm Endometrial Stripe: 0.54 cm Right Ovary: 3.1 x 2.1 x 1.9 cm Left Ovary: Not seen 1. Uterus: Anteverted Very heterogeneous. Small heterogeneously hypoechoic area at the posterior right uterine body measuring 0.7 x 0.6 x 0.7 c m. Indistinct, heterogeneous area seen anteriorly: 1.7 x 1.2 x 1.4 cm. 2. Endometrium: Measured at 0.54 cm. 3. Right Ovary: Within normal limits 4. Left Ovary: Not seen 5. Bilateral Adnexa: Appear wnl 6. Posterior cul-de-sac: Appears wnl IMPRESSION: 1. The left ovary is not visualized on today's examination. While lack of visualization precludes com parison, the previously seen cyst was likely physiologic. 2. Several small heterogeneous foci in the uterus could be small fibroids.
== END | disposition home or self-care (01) ==
LOC: RADUSWWP 10:19
PROVIDERS: ATTEND Internal Medicine
DX: N85.8 Other specified noninflammatory disorders of uterus (principal)
CPT/HCPCS: 76830; 76856

== ENCOUNTER 2023-03-12 08:43 | Emergency (ER) | payer OTHER ==
[2023-03-12 08:53] VITALS: RESP 18
--- NOTE | 2023-03-12 09:23 | ED ---
SOB HPI - General Source: patient, RN notes reviewed Mode of arrival: ambulatory Limitations: no limitations - History of Present Illness MD Complaint: shortness of breath, cough Onset/Timin -: days(s) <Mansi Ram - Last Filed: 03/15/23 18:45> <Marilou Frey - Last Filed: 03/16/23 11:04> - General Chief Complaint: Shortness of Breath Stated Complaint: sob Time Seen by Provider: 03/12/23 09:00 - History of Present Illness Initial Comments: This is a 27-year-old female who presents to the emergency department for s hortness of breath and left-sided chest and shoulder pain. Patient states that this started last night. Denies any history of similar symptoms in the past. Pain is exacerbated when trying to breathe. Reports that the pain and breathing are also worse when she tries to lay flat. Patient vapes regularly. Denies any history of asthma or other respiratory illnesses. Also denies any injuries. S he has not been coughing or having any upper respiratory symptoms. Denies any fevers, chills, sore throat, cough, palpitations, abdominal pain, nausea, vomiting, diarrhea, back pain, or headaches. (Mansi Ram) - Related Data Home Medications Medication Instructions Recorded Confirmed norethindrone-e.estradioL-iron 1 tab PO DAILY 03/13/23 03/13/23 [Junel Fe 1 mg-20 Mcg Tablet] Previous Rx's Medication Instructions Recorded Baclofen 5 mg PO TID PRN #15 tablet 03/12/23 predniSONE 50 mg PO DAILY 5 Days #5 tab 03/12/23 Cyclobenzaprine [Flexeril] 10 mg PO TID PRN #15 tab 03/13/23 Allergies Allergy/AdvReac Type Severity Reaction Status Date / Time No Known Allergies Allergy Verified 03/13/23 11:29 Review of Systems ROS Other: All systems not noted in ROS Statement are negative. <Mansi Ram - Last Filed: 03/15/23 18:45> ROS Other: All systems not noted in ROS Statement are negative. <Marilou Frey - Last Filed: 03/16/23 11:04> ROS Statement: Those systems with pertinent positive or pertinent negative responses have been documented in the HPI. Past Medical History Past Medical History: No Reported History History of Any Multi-Drug Resistant Organisms: None Reported Past Surgical History: No Surgical Hx Reported Past Anesthesia/Blood Transfusion Reactions: No Reported Reaction Past Psychological History: No Psychological Hx Reported Smoking Status: Vaper Past Alcohol Use History: Occasional Past Drug Use History: None Reported - Past Family History Father Family Medical History: No Reported History <Mansi Ram - Last Filed: 03/15/23 18:45> General Exam Limitations: no limitations General appearance: alert, in no apparent distress Head exam: Present: atraumatic, normocephalic, normal inspection Respiratory exam: Present: normal lung sounds bilaterally, chest wall tenderness (Over the left rib cage). Absent: respiratory distress, wheezes, rales, rhonchi, stridor Cardiovascular Exam: Present: regular rate, normal rhythm, normal heart sounds. Absent: systolic murmur, diastolic murmur, rubs, gallop, clicks Neurological exam: Present: alert, oriented X3, CN II-XII intact Psychiatric exam: Present: normal affect, normal mood Skin exam: Present: warm, dry, intact, normal color. Absent: rash <Mansi Ram - Last Filed: 03/15/23 18:45> Course Vital Signs 03/12/23 03/12/23 08:48 12:45 Temperature 98 F 97.6 F Pulse Rate 113 H 103 H Respiratory 18 18 Rate Blood Pressure 126/91 131/87 O2 Sat by Pulse 100 99 Oximetry Medical Decision Making - Lab Data Result diagrams: 03/12/23 09:43 03/12/23 09:43 - Radiology Data Radiology results: report reviewed, image reviewed <Mansi Ram - Last Filed: 03/15/23 18:45> - Lab Data Result diagrams: 03/12/23 09:43 03/12/23 09:43 <Marilou Frey - Last Filed: 03/16/23 11:04> - Medical Decision Making This is a 27-year-old female who presents to the emergency department for chest pain and shortness of breath. Was pt. sent in by a medical professional or institution? @ -No Did you speak to anyone other than the patient for history? @ -No Did you review nursing and triage notes? @ -Yes, and I agree, it is accurate with regards to the patient's symptoms. Were old charts reviewed? @ -No Differential Diagnosis? @ -Differential Chest Pain: Stable Angina, Unstable Angina, STEMI, NSTEMI Aortic Dissection, Pneumothorax, Musculoskeletal, Esophageal Spasm GERD, Cholecystitis, Pancreatitis, Zoster, this is not meant to be an all-inclusive list. EKG interpreted by me (3pts min.)? @ -EKG interpreted by me revealing the following: Sinus rhythm. Ventricular rate 96 bpm, IN interval 159 ms, QRS duration 93 ms, QTC 410 ms. X-rays interpreted by me (1pt min.)? @ -Chest x-ray obtained, my interpretation identifies no localized consolidations or infiltrates. What testing was considered but not performed? (CT, X-rays, U/S, labs)? Why? @ -None What meds were considered but not given? Why? @ -None Did you discuss the management of the patient with other professionals? @ -No Did you reconcile home meds? @ -No Was smoking cessation discussed for >3mins.? @ -No Was critical care preformed (if so, how long)? @ -No Were there social determinants of health that impacted care today? How? (Homelessness, low income, unemployed, alcoholism, drug addiction, transport ation, low edu. Level, literacy, decrease access to med. care, long term, rehab)? @ -No Was there de-escalation of care discussed even if they declined? (Discuss DNR or withdrawal of care, Hospice)? @ -No What co-morbidities impacted this encounter? (DM, HTN, Smoking, COPD, CAD, Cancer, CVA, Hep., AIDS, mental health diagnosis, sleep apnea, morbid obesity)? @ -None Was patient admitted / discharged? @ -Discharged. Lab work obtained and found to be nonactionable, including a negative troponin and negative d-dimer. Pain was entirely reproducible on examination. Chest x-ray revealed no acute process. She was given Toradol, a lidocaine patch, and Flexeril with improvement in symptoms. Advised that the cause of this is not entirely clear. This may be musculoskeletal in nature. Prescription for Toradol and baclofen provided with dosing instructions reviewed. Patient is instructed to take the Toradol with Tylenol if needed and avoid any other qsqg-mrw-mzulkol anti-inflammatories such as ibuprofen with the Toradol. Also advised oysp-kkh-kmakvfe lidocaine cream or patches as needed. Additionally, advised that the baclofen can be sedating and she should avoid driving or operating machinery when taking this. Undiagnosed new problem with uncertain prognosis? @ -None Drug Therapy requiring intensive monitoring for toxicity (Heparin, Nitro, Insulin, Cardizem)? @ -None Were any procedures done? @ -None Diagnosis/symptom? @ -Left sided rib pain Acute, or Chronic, or Acute on Chronic? @ -Acute Uncomplicated (without systemic symptoms) or Complicated (systemic symptoms)? @ -Uncomplicated Side effects of treatment? @ -None Exacerbation, Progression, or Severe Exacerbation] @ -Not applicable Poses a threat to life or bodily function? @ -No Return precautions reviewed in depth, the patient is instructed to return to the emergency department with any new, worsening, or concerning symptoms. Patient verbalized understanding. This case was discussed in detail with the attending ED physician, Dr. Frey. Presentation, findings, and treatment plan discussed in detail as well. (Mansi Ram) - Lab Data Lab Results 03/12/23 03/12/23 03/12/23 Range/Units 09:43 09:43 09:43 WBC 8.2 (3.8-10.6) k/uL RBC 5.03 (3.80-5.40) m/uL Hgb 14.5 (11.4-16.0) gm/dL Hct 43.6 (34.0-46.0) % MCV 86.6 (80.0-100.0) fL MCH 28.8 (25.0-35.0) pg MCHC 33.2 (31.0-37.0) g/dL RDW 13.0 (11.5-15.5) % Plt Count 275 (150-450) k/uL MPV 8.0 Neutrophils % 83 % Lymphocytes % 9 % Monocytes % 5 % Eosinophils % 1 % Basophils % 0 % Neutrophils # 6.8 (1.3-7.7) k/uL Lymphocytes # 0.8 L (1.0-4.8) k/uL Monocytes # 0.4 (0-1.0) k/uL Eosinophils # 0.1 (0-0.7) k/uL Basophils # 0.0 (0-0.2) k/uL PT 10.0 (9.0-12.0) sec INR 0.9 (<1.2) APTT 26.8 (22.0-30.0) sec D-Dimer 0.57 (<0.60) mg/L FEU Sodium 141 (137-145) mmol/L Potassium 4.0 (3.5-5.1) mmol/L Chloride 105 (98-107) mmol/L Carbon Dioxide 23 (22-30) mmol/L Anion Gap 13 mmol/L BUN 11 (7-17) mg/dL Creatinine 0.56 (0.52-1.04) mg/dL Est GFR (CKD-EPI)AfAm >90 (>60 ml/min/1.73 sqM) Est GFR (CKD-EPI)NonAf >90 (>60 ml/min/1.73 sqM) Glucose 107 H (74-99) mg/dL Calcium 9.4 (8.4-10.2) mg/dL Total Bilirubin 0.5 (0.2-1.3) mg/dL AST 26 (14-36) U/L ALT 35 H (4-34) U/L Alkaline Phosphatase 51 (38-126) U/L Troponin I (0.000-0.034) ng/mL Total Protein 8.0 (6.3-8.2) g/dL Albumin 4.8 (3.5-5.0) g/dL 03/12/23 Range/Units 09:43 WBC (3.8-10.6) k/uL RBC (3.80-5.40) m/uL Hgb (11.4-16.0) gm/dL Hct (34.0-46.0) % MCV (80.0-100.0) fL MCH (25.0-35.0) pg MCHC (31.0-37.0) g/dL RDW (11.5-15.5) % Plt Count (150-450) k/uL MPV Neutrophils % % Lymphocytes % % Monocytes % % Eosinophils % % Basophils % % Neutrophils # (1.3-7.7) k/uL Lymphocytes # (1.0-4.8) k/uL Monocytes # (0-1.0) k/uL Eosinophils # (0-0.7) k/uL Basophils # (0-0.2) k/uL PT (9.0-12.0) sec INR (<1.2) APTT (22.0-30.0) sec D-Dimer (<0.60) mg/L FEU Sodium (137-145) mmol/L Potassium (3.5-5.1) mmol/L Chloride (98-107) mmol/L Carbon Dioxide (22-30) mmol/L Anion Gap mmol/L BUN (7-17) mg/dL Creatinine (0.52-1.04) mg/dL Est GFR (CKD-EPI)AfAm (>60 ml/min/1.73 sqM) Est GFR (CKD-EPI)NonAf (>60 ml/min/1.73 sqM) Glucose (74-99) mg/dL Calcium (8.4-10.2) mg/dL Total Bilirubin (0.2-1.3) mg/dL AST (14-36) U/L ALT (4-34) U/L Alkaline Phosphatase (38-126) U/L Troponin I <0.012 (0.000-0.034) ng/mL Total Protein (6.3-8.2) g/dL Albumin (3.5-5.0) g/dL Disposition Is patient prescribed a controlled substance at d/c from ED?: No <Mansi Ram - Last Filed: 03/15/23 18:45> <Marilou Frey - Last Filed: 03/16/23 11:04> Clinical Impression: Rib pain on left side Disposition: HOME SELF-CARE Instructions (If sedation given, give patient instructions): Thoracic Pain (ED), Noncardiac Chest Pain (ED) Additional Instructions: Return to the emergency department with any new, worsening, or concerning symptoms. Take the prednisone daily for 5 days. Do not take csvy-sft-csolvsg anti-inflammatories such as ibuprofen when taking this. You can use mzlr-ofl-wnabjju lidocaine cream or patches. Follow up with your primary care provider in 1-2 days. Prescriptions: Baclofen 5 mg PO TID PRN #15 tablet PRN Reason: Pain predniSONE 50 mg PO DAILY 5 Days #5 tab Referrals: Ingrid Campos MD [Primary Care Provider] - 1-2 days
[2023-03-12 09:57] LABS: Basophils % (A) 0 %; Eosinophils # (A) 0.1 k/uL (0-0.7); Eosinophils % (A) 1 %; HCT 43.6 % (34.0-46.0); HGB 14.5 gm/dL (11.4-16.0); Lymphocytes # (A) 0.8 k/uL (1.0-4.8); Lymphocytes % (A) 9 %; MCH 28.8 pg (25.0-35.0); MCHC 33.2 g/dL (31.0-37.0); MCV 86.6 fL (80.0-100.0); Monocytes # (A) 0.4 k/uL (0-1.0); Monocytes % (A) 5 %; Neutrophils # (A) 6.8 k/uL (1.3-7.7); Neutrophils % (A) 83 %; Platelet Count 275 k/uL (150-450); RBC 5.03 m/uL (3.80-5.40); WBC 8.2 k/uL (3.8-10.6)
--- NOTE | 2023-03-12 10:01 | XR ---
EXAMINATION TYPE: XR chest 2V DATE OF EXAM: 03/12/2023 COMPARISON: Prior chest x-ray February 19, 2022 HISTORY: Difficulty in breathing. TECHNIQUE: Frontal and lateral views of the chest are obtained. FINDINGS: There is no suspicious focal air space opacity, pleural effusion, or pneumothorax seen. T he cardiac silhouette size is stable and within normal limits. The osseous structures are intact. IMPRESSION: No acute cardiopulmonary process. No significant change from prior.
[2023-03-12 10:13] LABS: ALT 35 U/L (4-34); AST 26 U/L (14-36); African American GFR (CKD) >90 (>60 ml/min/1.73 sqM); Albumin 4.8 g/dL (3.5-5.0); Alkaline Phosphatase 51 U/L (38-126); Anion Gap 13 mmol/L; Blood Urea Nitrogen 11 mg/dL (7-17); Calcium 9.4 mg/dL (8.4-10.2); Carbon Dioxide 23 mmol/L (22-30); Chloride 105 mmol/L (98-107); Glucose 107 mg/dL (74-99); Non-African American GFR(CKD) >90 (>60 ml/min/1.73 sqM); Sodium 141 mmol/L (137-145); Total Bilirubin 0.5 mg/dL (0.2-1.3)
[2023-03-12 10:17] LABS: INR 0.9 (<1.2); Partial Thromboplastin Time 26.8 sec (22.0-30.0)
[2023-03-12] MEDS ORDERED: KETOROLAC 15 MG/ML 1 ML VIAL IVP STA (10:36)
[2023-03-12] MEDS ORDERED: KETOROLAC 15 MG/ML 1 ML VIAL IM STA (10:37)
[2023-03-12] MEDS ORDERED: CYCLOBENZAPRINE 5 MG TAB PO STA (10:48)
[2023-03-12] MEDS ORDERED: LIDOCAINE 5% PATCH TOPICAL ONE (12:05)
[2023-03-12] MEDS ORDERED: ACET/COD 300 MG/30 MG STARTER PACK 6 TAB BTL PO STA (12:08)
[2023-03-12 12:53] VITALS: BP 131/87; PULSE 103; TEMP 97.6
== END 2023-03-12 12:47 | disposition home or self-care (01) ==
LOC: EC 08:43
DX: R07.81 Pleurodynia (principal); F17.290 Nicotine dependence, other tobacco product, uncomplicated
CPT/HCPCS: 36415; 93005; 85379; 80053; 84484; 85025; 85610; 85730; 71046; 99285; 96372; J1885

== ENCOUNTER 2023-03-13 09:25 | Emergency (ER) | payer OTHER ==
[2023-03-13] MEDS ORDERED: SODIUM CHLORIDE 0.9% 1,000 ML IV ONE (10:47)
[2023-03-13] MEDS ORDERED: KETOROLAC 15 MG/ML 1 ML VIAL IVP STA (10:47)
--- NOTE | 2023-03-13 10:51 | ED ---
General Adult HPI - General Chief complaint: Chest Pain Stated complaint: chest pain Time Seen by Provider: 03/13/23 10:19 Source: patient, RN notes reviewed Mode of arrival: ambulatory Limitations: no limitations - History of Present Illness Initial comments: 27-year-old female with no significant past medical history presents to the emergency department with a chief complaint of left-sided chest pain. She describes the chest pain as sharp that is worse with movement. She was seen and evaluated here at this facility yesterday for the same complaint for which she had a complete cardiac workup is essentially negative. She reports that her symptoms have not resolved and has gotten worse her discharge. She has been taking Tylenol Motrin prednisone and baclofen for his symptoms with minimal relief. She denies any fever, headache, congestion, cough, palpitations, shortness of breath, abdominal pain, nausea, vomiting, diarrhea. She does report to occasional cocaine use - Related Data Home Medications Medication Instructions Recorded Confirmed norethindrone-e.estradioL-iron 1 tab PO DAILY 03/13/23 03/13/23 [Junel Fe 1 mg-20 Mcg Tablet] Previous Rx's Medication Instructions Recorded Baclofen 5 mg PO TID PRN #15 tablet 03/12/23 predniSONE 50 mg PO DAILY 5 Days #5 tab 03/12/23 Cyclobenzaprine [Flexeril] 10 mg PO TID PRN #15 tab 03/13/23 Allergies Allergy/AdvReac Type Severity Reaction Status Date / Time No Known Allergies Allergy Verified 03/13/23 11:29 Review of Systems ROS Statement: Those systems with pertinent positive or pertinent negative responses have been documented in the HPI. ROS Other: All systems not noted in ROS Statement are negative. Past Medical History Past Medical History: No Reported History History of Any Multi-Drug Resistant Organisms: None Reported Past Surgical History: No Surgical Hx Reported Past Anesthesia/Blood Transfusion Reactions: No Reported Reaction Past Psychological History: No Psychological Hx Reported Smoking Status: Vaper Past Alcohol Use History: Occasional Past Drug Use History: None Reported - Past Family History Father Family Medical History: No Reported History General Exam Limitations: no limitations Course Vital Signs 03/13/23 03/13/23 03/13/23 09:35 10:50 12:54 Temperature 98.3 F Pulse Rate 117 H 101 H 76 Respiratory 16 Rate Blood Pressure 121/81 134/89 O2 Sat by Pulse 98 100 Oximetry 03/13/23 14:37 Temperature 98.1 F Pulse Rate 88 Respiratory 14 Rate Blood Pressure 129/88 O2 Sat by Pulse 99 Oximetry - Reevaluation(s) Reevaluation #1: 03/13/23 11:49 Patient reevaluated. Patient reports pain. Morphine ordered. Reevaluation #2: 03/13/23 12:20 Notified of elevated d-dimer value. CT angiogram ordered. Patient updated on results. EKG Findings - EKG Comments: EKG Findings:: I intepreted the following: EKG performed at 10:04. rate 100bpm, and sinus tachycardia, MS interval 132, QRS duration 90, QT/QTc 355/412 Medical Decision Making - Medical Decision Making Was pt. sent in by a medical professional or institution (Dr. PA, TRIM TECHNICIAN, urgent care, hospital, or shelter...) When possible be specific @ -Time Did you speak to anyone other than the patient for history (EMS, parent, family, police, friend...)? What history was obtained from this source @ -[No] Did you review nursing and triage notes (agree or disagree)? Why? @ -[I reviewed and agree with nursing and triage notes] Were old charts reviewed (outside hosp., previous admission, EMS record, old EKG, old radiological studies, urgent care reports/EKG's, shelter records)? Report findings @ -[No old charts were reviewed] Differential Diagnosis (chest pain, altered mental status, abdominal pain women, abdominal pain men, vaginal bleeding, weakness, fever, dyspnea, syncope, headache, dizziness, GI bleed, back pain, seizure, CVA, palpatations, mental health, musculoskeletal)? @ -[not applicable] EKG interpreted by me (3pts min.). @ -[As above] X-rays interpreted by me (1pt min.). @ -[None done] CT interpreted by me (1pt min.). @ -[None done] U/S interpreted by me (1pt. min.). @ -[None done] What testing was considered but not performed or refused? (CT, X-rays, U/S, labs)? Why? @ -[None] What meds were considered but not given or refused? Why? @ -[None] Did you discuss the management of the patient with other professionals (professionals i.e. , PA, TRIM TECHNICIAN, lab, RT, psych nurse, social sciences instructor, general counselor, teacher, dog license officer supervisor, renal case manager)? Give summary @ -[No] Was smoking cessation discussed for >3mins.? @ -[No] Was critical care preformed (if so, how long)? @ -[No] Were there social determinants of health that impacted care today? How? (Homelessness, low income, unemployed, alcoholism, drug addiction, transportation, low edu. Level, literacy, decrease access to med. care, group home, rehab)? @ -[No] Was there de-escalation of care discussed even if they declined (Discuss DNR or withdrawal of care, Hospice)? DNR status @ -[No] What co-morbidities impacted this encounter? (DM, HTN, Smoking, COPD, CAD, Cancer, CVA, ARF, Chemo, Hep., AIDS, mental health diagnosis, sleep apnea, morbid obesity)? @ -[None] Was patient admitted / discharged? Hospital course, mention meds given and route, prescriptions, significant lab abnormalities, going to OR and other pertinent info. @ -Discharged. This is a 27-year-old female presents the emergency department with L rib pain.. Patient had a thorough history and physical exam performed while in the ED. Physical exam is essentially unremarkable. Heart rate is tachycardic and regular, lung sounds clear to auscultation bilaterally abdomen is soft and nontender. Heart rate 88 and regular upon discharge Patient was given Toradol and morphine injection, 1L IV fluids with symptomatic relief on the ED. patient had lab work and imaging performed: Initially d-dimer was elevated at 0.84. CT angiogram was ordered. CT is negative for any evid ence of PE. I discussed the results in detail with the patient verbalized understanding. Patient was given Tylenol with codeine upon discharge. Return precautions were discussed at length. Discharged in stable condition. Case discussed with REGINALD Rodriguez who agrees with plan of care Undiagnosed new problem with uncertain prognosis? @ -[No] Drug Therapy requiring intensive monitoring for toxicity (Heparin, Nitro, Insulin, Cardizem)? @ -[No] Were any procedures done? @ -[No] Diagnosis/symptom? @ -L rib pain Acute, or Chronic, or Acute on Chronic? @ -Acute Uncomplicated (without systemic symptoms) or Complicated (systemic symptoms)? @ -Uncomplicated Side effects of treatment? @ -[No] Exacerbation, Progression, or Severe Exacerbation? @ -[No] Poses a threat to life or bodily function? How? (Chest pain, USA, [place], pneumonia, PE, COPD, DKA, ARF, appy, cholecystitis, CVA, Diverticulitis, Homicidal, Suicidal, threat to staff... and all critical care pts) @ -low likelihood - Lab Data Result diagrams: 03/13/23 11:03/13/23 11: Lab Results 03/13/23 03/13/23 03/13/23 Range/Units 11: 11: 11: WBC 8.4 (3.8-10.6) k/uL RBC 4.67 (3.80-5.40) m/uL Hgb 13.3 (11.4-16.0) gm/dL Hct 40.1 (34.0-46.0) % MCV 85.9 (80.0-100.0) fL MCH 28.6 (25.0-35.0) pg MCHC 33.3 (31.0-37.0) g/dL RDW 13.2 (11.5-15.5) % Plt Count 229 (150-450) k/uL MPV 8.2 Neutrophils % 83 % Lymphocytes % 10 % Monocytes % 5 % Eosinophils % 1 % Basophils % 0 % Neutrophils # 7.0 (1.3-7.7) k/uL Lymphocytes # 0.8 L (1.0-4.8) k/uL Monocytes # 0.4 (0-1.0) k/uL Eosinophils # 0.0 (0-0.7) k/uL Basophils # 0.0 (0-0.2) k/uL D-Dimer 0.84 H (<0.60) mg/L FEU Sodium (137-145) mmol/L Potassium (3.5-5.1) mmol/L Chloride (98-107) mmol/L Carbon Dioxide (22-30) mmol/L Anion Gap mmol/L BUN (7-17) mg/dL Creatinine (0.52-1.04) mg/dL Est GFR (CKD-EPI)AfAm (>60 ml/min/1.73 sqM) Est GFR (CKD-EPI)NonAf (>60 ml/min/1.73 sqM) Glucose (74-99) mg/dL Calcium (8.4-10.2) mg/dL Total Bilirubin (0.2-1.3) mg/dL AST (14-36) U/L ALT (4-34) U/L Alkaline Phosphatase (38-126) U/L Troponin I (0.000-0.034) ng/mL Total Protein (6.3-8.2) g/dL Albumin (3.5-5.0) g/dL Urine Color Yellow Urine Appearance Clear (Clear) Urine pH 5.5 (5.0-8.0) Ur Specific Minerva 1.022 (1.001-1.035) Urine Protein Trace H (Negative) Urine Glucose (UA) Negative (Negative) Urine Ketones Negative (Negative) Urine Blood Negative (Negative) Urine Nitrite Negative (Negative) Urine Bilirubin Negative (Negative) Urine Urobilinogen <2.0 (<2.0) mg/dL Ur Leukocyte Esterase Moderate H (Negative) Urine RBC <1 (0-5) /hpf Urine WBC 2 (0-5) /hpf Ur Squamous Epith Cells 3 (0-4) /hpf Urine Mucus Moderate H (None) /hpf Urine HCG, Qual (Not Detectd) 03/13/23 03/13/23 03/13/23 Range/Units 11:26 11:26 11:26 WBC (3.8-10.6) k/uL RBC (3.80-5.40) m/uL Hgb (11.4-16.0) gm/dL Hct (34.0-46.0) % MCV (80.0-100.0) fL MCH (25.0-35.0) pg MCHC (31.0-37.0) g/dL RDW (11.5-15.5) % Plt Count (150-450) k/uL MPV Neutrophils % % Lymphocytes % % Monocytes % % Eosinophils % % Basophils % % Neutrophils # (1.3-7.7) k/uL Lymphocytes # (1.0-4.8) k/uL Monocytes # (0-1.0) k/uL Eosinophils # (0-0.7) k/uL Basophils # (0-0.2) k/uL D-Dimer (<0.60) mg/L FEU Sodium 138 (137-145) mmol/L Potassium 4.1 (3.5-5.1) mmol/L Chloride 101 (98-107) mmol/L Carbon Dioxide 28 (22-30) mmol/L Anion Gap 9 mmol/L BUN 9 (7-17) mg/dL Creatinine 0.54 (0.52-1.04) mg/dL Est GFR (CKD-EPI)AfAm >90 (>60 ml/min/1.73 sqM) Est GFR (CKD-EPI)NonAf >90 (>60 ml/min/1.73 sqM) Glucose 109 H (74-99) mg/dL Calcium 9.0 (8.4-10.2) mg/dL Total Bilirubin 1.0 (0.2-1.3) mg/dL AST 30 (14-36) U/L ALT 33 (4-34) U/L Alkaline Phosphatase 41 (38-126) U/L Troponin I <0.012 (0.000-0.034) ng/mL Total Protein 7.6 (6.3-8.2) g/dL Albumin 4.5 (3.5-5.0) g/dL Urine Color Urine Appearance (Clear) Urine pH (5.0-8.0) Ur Specific Minerva (1.001-1.035) Urine Protein (Negative) Urine Glucose (UA) (Negative) Urine Ketones (Negative) Urine Blood (Negative) Urine Nitrite (Negative) Urine Bilirubin (Negative) Urine Urobilinogen (<2.0) mg/dL Ur Leukocyte Esterase (Negative) Urine RBC (0-5) /hpf Urine WBC (0-5) /hpf Ur Squamous Epith Cells (0-4) /hpf Urine Mucus (None) /hpf Urine HCG, Qual Not Detected (Not Detectd) Disposition Clinical Impression: Rib pain on left side Disposition: HOME SELF-CARE Condition: Stable Instructions (If sedation given, give patient instructions): Costochondritis (ED) Additional Instructions: These return to the nearest emergency department if symptoms worsen or persist Prescriptions: Cyclobenzaprine [Flexeril] 10 mg PO TID PRN #15 tab PRN Reason: Muscle Spasm Is patient prescribed a controlled substance at d/c from ED?: No Referrals: Ingrid Campos MD [Primary Care Provider] - 1-2 days Time of Disposition: 14:03
[2023-03-13 11:36] LABS: Basophils % (A) 0 %; Eosinophils % (A) 1 %; HCT 40.1 % (34.0-46.0); HGB 13.3 gm/dL (11.4-16.0); Lymphocytes # (A) 0.8 k/uL (1.0-4.8); Lymphocytes % (A) 10 %; MCH 28.6 pg (25.0-35.0); MCHC 33.3 g/dL (31.0-37.0); MCV 85.9 fL (80.0-100.0); Mean Platelet Volume 8.2; Monocytes # (A) 0.4 k/uL (0-1.0); Monocytes % (A) 5 %; Neutrophils % (A) 83 %; Platelet Count 229 k/uL (150-450); RBC 4.67 m/uL (3.80-5.40); RDW 13.2 % (11.5-15.5); WBC 8.4 k/uL (3.8-10.6)
[2023-03-13 11:43] LABS: Appearance,Urine Clear (Clear); Bilirubin,Urine Negative (Negative); Blood,Urine Negative (Negative); Color,Urine Yellow; Glucose,Urine (UA) Negative (Negative); Ketones,Urine Negative (Negative); Leukocyte Esterase,Urine Moderate (Negative); Mucus,Urine Moderate /hpf; Nitrite,Urine Negative (Negative); PH, Urine 5.5 (5.0-8.0); Protein,Urine Trace (Negative); RBC,Urine <1 /hpf (0-5); Specific Gravity,Urine 1.022 (1.001-1.035); Squamous Epithelial Cell,Urine 3 /hpf (0-4); Urobilinogen,Urine <2.0 mg/dL (<2.0); WBC,Urine 2 /hpf (0-5)
[2023-03-13] MEDS ORDERED: MORPHINE SULFATE 2 MG/ML SYRINGE IVP ONE ×2 (11:48→14:02)
[2023-03-13 11:59] LABS: ALT 33 U/L (4-34); AST 30 U/L (14-36); African American GFR (CKD) >90 (>60 ml/min/1.73 sqM); Albumin 4.5 g/dL (3.5-5.0); Alkaline Phosphatase 41 U/L (38-126); Anion Gap 9 mmol/L; Blood Urea Nitrogen 9 mg/dL (7-17); Carbon Dioxide 28 mmol/L (22-30); Chloride 101 mmol/L (98-107); Glucose 109 mg/dL (74-99); Non-African American GFR(CKD) >90 (>60 ml/min/1.73 sqM); Sodium 138 mmol/L (137-145); Total Protein 7.6 g/dL (6.3-8.2)
[2023-03-13 12:01] LABS: Potassium 4.1 mmol/L (3.5-5.1)
--- NOTE | 2023-03-13 12:05 | XR ---
EXAMINATION TYPE: XR chest 2V DATE OF EXAM: 03/13/2023 COMPARISON: 03/12/2023 TECHNIQUE: PA and lateral views submitted. HISTORY: Chest pain FINDINGS: There is left basilar subsegmental consolidation. and there is no pneumothorax, pleural effusion, or focal pneumonia. Heart size normal and no overt failure. Osseous structures intact. IMPRESSION: 1. Left basilar atelectasis over pneumonia. Correlate clinically.
--- NOTE | 2023-03-13 13:01 | CT ---
EXAMINATION TYPE: CT chest angio for PE DATE OF EXAM: 03/13/2023 COMPARISON: None HISTORY: 27-year-old female elevated d-dimer, chest pain TECHNIQUE: Contiguous axial scanning of the chest performed with IV Contrast, patient injected with 7 4cc mL of Isovue 370. Coronal/sagittal MIP reconstructions performed. CT DLP: 231.1 mGycm Automated exposure control for dose reduction was used. FINDINGS: Heart is normal size without pericardial effusion. No flattening of the interventricular septum or re flux of contrast into the hepatic veins. Bovine configuration to the aortic arch. Residual thymic tissue anterior mediastinum. Right hilar lymph node mildly enlarged at 1.2 cm, probab ly reactive. Right paratracheal node 1.1 cm. Otherwise, no thoracic lymphadenopathy seen. There is a trace left pleural effusion. Multifocal peribronchial vascular groundglass opacities. Some scattered tree-in-bud opacities are als o present. Groundglass change in the inferior lingula. Satisfactory opacification of pulmonary arterial system without any pulmonary embolus seen. There is a tiny hiatal hernia. Visualized upper abdomen shows no gross abnormal body. Bones: No osseous destructive process. IMPRESSION: 1. NO EVIDENCE FOR PULMONARY EMBOLUS. 2. MULTIFOCAL PERIBRONCHOVASCULAR GROUNDGLASS CHANGE. SOME SCATTERED MINIMAL TREE-IN-BUD OPACITIES. I NFERIOR LINGULAR GROUNDGLASS. TRACE LEFT PLEURAL EFFUSION. THE ETIOLOGY IS UNCLEAR. CONSIDER POSSIBIL ITIES SUCH ATYPICAL PNEUMONIA, STOCK WETTER, COVID PNEUMONIA, BRONCHIOLITIS, ETC. 3. A FEW REACTIVE HILAR AND MEDIASTINAL LYMPH NODES. 4. TINY HIATAL HERNIA.
[2023-03-13] MEDS ORDERED: ACET/COD 300 MG/30 MG STARTER PACK 6 TAB BTL PO STA (14:26)
[2023-03-13 14:40] VITALS: BP 129/88; PULSE 88; RESP 14; TEMP 98.1
== END 2023-03-13 14:40 | disposition home or self-care (01) ==
LOC: EC 09:25
DX: R07.81 Pleurodynia (principal); R00.0 Tachycardia, unspecified; F17.290 Nicotine dependence, other tobacco product, uncomplicated
CPT/HCPCS: 36415; 85379; 80053; 84484; 85025; 81001; 81025; 71046; 71275; 99285; 96374; 96375; 96376; 96361; J2270; J1885; Q9967

== ENCOUNTER 2024-08-20 09:49 | Emergency (ER) | payer OTHER ==
[2024-08-20 10:32] VITALS: RESP 18; TEMP 98.1
--- NOTE | 2024-08-20 10:32 | ED ---
Extremity Problem HPI - General Stated complaint: knee pain Time Seen by Provider: 08/20/24 10:05 Source: patient, RN notes reviewed - History of Present Illness Initial comments: 29-year-old female no significant past medical history presented to the emergency department chief complaint of nontraumatic left knee pain. States approximately 3 AM this morning she began to experience knee pain to the anterior knee with radiation proximally to her mid thigh. She denies any recent traumas, injury or falls. Denies previous surgery of the right knee. She is attempted take any medications to alleviate symptoms. She denies calf pain, right lower extremity edema, erythema, shortness of breath, chest pain, heart palpitations, history of prolonged travel, recent surgeries, history of blood clotting disorders or DVT. - Related Data Home Medications Medication Instructions Recorded Confirmed norethindrone-e.estradioL-iron 1 tab PO DAILY 03/13/23 03/13/23 [Junel Fe 1 mg-20 Mcg Tablet] Previous Rx's Medication Instructions Recorded Baclofen 5 mg PO TID PRN #15 tablet 03/12/23 predniSONE 50 mg PO DAILY 5 Days #5 tab 03/12/23 Cyclobenzaprine [Flexeril] 10 mg PO TID PRN #15 tab 03/13/23 Ibuprofen [Motrin] 800 mg PO Q6HR #30 tab 08/20/24 Allergies Allergy/AdvReac Type Severity Reaction Status Date / Time No Known Allergies Allergy Verified 03/13/23 11:29 Review of Systems ROS Statement: Those systems with pertinent positive or pertinent negative responses have been documented in the HPI. ROS Other: All systems not noted in ROS Statement are negative. Past Medical History Past Medical History: No Reported History History of Any Multi-Drug Resistant Organisms: None Reported Past Surgical History: No Surgical Hx Reported Past Anesthesia/Blood Transfusion Reactions: No Reported Reaction Past Psychological History: No Psychological Hx Reported Smoking Status: Vaper Past Alcohol Use History: Occasional Past Drug Use History: None Reported - Past Family History Father Family Medical History: No Reported History General Exam General appearance: alert, in no apparent distress Eye exam: Present: normal appearance, PERRL, EOMI. Absent: scleral icterus, conjunctival injection, periorbital swelling ENT exam: Present: normal exam, mucous membranes moist Neck exam: Present: normal inspection. Absent: tenderness, meningismus, lymphadenopathy Respiratory exam: Present: normal lung sounds bilaterally. Absent: respiratory distress, wheezes, rales, rhonchi, stridor Cardiovascular Exam: Present: regular rate, normal rhythm, normal heart sounds. Absent: systolic murmur, diastolic murmur, rubs, gallop, clicks GI/Abdominal exam: Present: soft, normal bowel sounds. Absent: distended, tenderness, guarding, rebound, rigid Left Knee exam: Present: normal inspection, full ROM, tenderness (anterior and posterior knee to palpation). Absent: swelling, abrasion, ecchymosis, deformity, crepitus, erythema, effusion Lower Leg exam: Present: normal inspection, full ROM. Absent: tenderness, swelling Neurovascular tendon exam: Absent: no vascular compromise, pulse deficit Gait: observed and limited by pain Back exam: Present: normal inspection Course Vital Signs 08/20/24 10:30 Temperature 98.1 F Pulse Rate 73 Respiratory 18 Rate Blood Pressure 145/102 O2 Sat by Pulse 100 Oximetry Medical Decision Making - Medical Decision Making Was pt. sent in by a medical professional or institution (, PA, SENIOR JAVA ENGINEER, urgent care, hospital, or senior care...) When possible be specific @ -No Did you speak to anyone other than the patient for history (EMS, parent, family, police, friend...)? What history was obtained from this source @ -No Did you review nursing and triage notes (agree or disagree)? Why? @ -I reviewed and agree with nursing and triage notes Were old charts reviewed (outside hosp., previous admission, EMS record, old EKG, old radiological studies, urgent care reports/EKG's, senior care records)? Report findings @ -No old charts were reviewed Differential Diagnosis (chest pain, altered mental status, abdominal pain women, abdominal pain men, vaginal bleeding, weakness, fever, dyspnea, syncope, headache, dizziness, GI bleed, back pain, seizure, CVA, palpatations, mental health, musculoskeletal)? @ -Differential Musculoskeletal Muscular strain, contusion, ligament sprain, fracture, arthritis, septic a rthritis, bursitis, cellulitis, muscle spasm, nerve compression, DVT, arterial occlusion, herpes zoster, electrolyte abnormality, tumor.... This is not meant to be in all inclusive list EKG interpreted by me (3pts min.). @ -None X-rays interpreted by me (1pt min.). @ -xray of The left knee negative for acute osseous abnormality CT interpreted by me (1pt min.). @ -None done U/S interpreted by me (1pt. min.). @ -None done What testing was considered but not performed or refused? (CT, X-rays, U/S, labs)? Why? @ -None What meds were considered but not given or refused? Why? @ -None Did you discuss the management of the patient with other professionals (professionals i.e. , PA, SENIOR JAVA ENGINEER, lab, RT, psych nurse, social worker delinquency prevention, territory sales consultant, teacher, transit authority police officer, caser shoe parts)? Give summary @ -No Was smoking cessation discussed for >3mins.? @ -No Was critical care preformed (if so, how long)? @ -No Were there social determinants of health that impacted care today? How? (Homelessness, low income, unemployed, alcoholism, drug addiction, transportation, low edu. Level, literacy, decrease access to med. care, long term, rehab)? @ -No Was there de-escalation of care discussed even if they declined (Discuss DNR or withdrawal of care, Hospice)? DNR status @ -No What co-morbidities impacted this encounter? (DM, HTN, Smoking, COPD, CAD, Cancer, CVA, ARF, Chemo, Hep., AIDS, mental health diagnosis, sleep apnea, morbid obesity)? @ -None Was patient admitted / discharged? Hospital course, mention meds given and route, prescriptions, significant lab abnormalities, going to OR and other pertinent info. @ -Discharge. 29-year-old female with left knee pain. On evaluation patient noted to have pain to the left knee to palpation of the anterior and posterior knee and is exacerbated with range of motion. She is able to bear weight however with some pain. There is no erythema or swelling of the calf. Negative Homans' sign. X-ray negative for acute osseous abnormality. Patient will be provided with out patient prescription for ibuprofen 800 instructed follow-up outpatient the primary care provider for further evaluation for potential MRI to evaluate soft tissue of the left knee. Discussed with Dr. Horton. Undiagnosed new problem with uncertain prognosis? @ -No Drug Therapy requiring intensive monitoring for toxicity (Heparin, Nitro, Insulin, Cardizem)? @ -No Were any procedures done? @ -No Diagnosis/symptom? @ -non-traumatic pain of the left knee Acute, or Chronic, or Acute on Chronic? @ -acute Uncomplicated (without systemic symptoms) or Complicated (systemic symptoms)? @ - uncomplicated Side effects of treatment? @ -No Exacerbation, Progression, or Severe Exacerbation? @ -No Poses a threat to life or bodily function? How? (Chest pain, [place], [place], pneumonia, PE, COPD, DKA, ARF, appy, cholecystitis, CVA, Diverticulitis, Homicidal, Suicidal, threat to staff... and all critical care pts) @ -No Disposition Clinical Impression: Generalized nontraumatic pain of knee region Disposition: HOME SELF-CARE Condition: Good Instructions (If sedation given, give patient instructions): Patellofemoral Pain Syndrome (ED), Knee Pain (ED) Additional Instructions: Please return to the Emergency Department if symptoms worsen or any other concerns. Continue supportive treatment at home. Follow-up with your primary care provider as needed. Prescriptions: Ibuprofen [Motrin] 800 mg PO Q6HR #30 tab Is patient prescribed a controlled substance at d/c from ED?: No Referrals: Ingrid Campos MD [Primary Care Provider] - 1-2 days Time of Disposition: 11:02
--- NOTE | 2024-08-20 10:55 | XR ---
Left knee. HISTORY: Pain COMPARISON: None. TECHNIQUE: 3 views left knee were obtained. Left hand. HISTORY: Pain following trauma. COMPARISON: None TECHNIQUE: 3 views left hand were obtained. FINDINGS: There is no fracture, dislocation, intraosseous or intra-articular abnormality. The soft tissues are normal. IMPRESSION: No significant abnormality seen. [facility], Workstation: [facility], 08/20/2024 10:52 AM
[2024-08-20 11:58] VITALS: BP 146/101; PULSE 83
== END 2024-08-20 11:58 | disposition home or self-care (01) ==
LOC: EC 09:49
CPT/HCPCS: 99283

== ENCOUNTER → 2025-02-08 | Outpatient (CLI) | payer OTHER ==
--- NOTE | 2025-02-09 16:33 | US ---
EXAMINATION TYPE: US liver DATE OF EXAM: 02/08/2025 COMPARISON: NONE CLINICAL INDICATION: Female, 29 years old with history of R74.8 LIVER ENZYME [id number] LIVER ENZ YME ELEVATION; Elevated liver enzymes TECHNIQUE: Grayscale and color Doppler imaging of the right upper quadrant was performed. FINDINGS: EXAM MEASUREMENTS: Liver Length: 18.6 cm Gallbladder Wall: 0.2 cm CBD: 0.4 cm Right Kidney: 11.5 x 5.3 x 5.3 cm Pancreas: Tail obscured by overlying bowel gas Liver: enlarged, attenuating Gallbladder: no evidence of stones Evidence for sonographic Brunson's sign: no CBD: appears wnl as visualized Right Kidney: no evidence of hydronephrosis IMPRESSION: 1. No suspicious acute changes right upper quadrant ultrasound. 2. Hepatomegaly [facility], , 02/09/2025 4:31 PM
== END | disposition home or self-care (01) ==
LOC: RADUSWWP 09:05
PROVIDERS: ATTEND Internal Medicine
DX: R16.0 Hepatomegaly, not elsewhere classified (principal); R74.8 Abnormal levels of other serum enzymes
CPT/HCPCS: 76705

== ENCOUNTER → 2025-02-13 | Outpatient (CLI) | payer OTHER ==
[2025-02-13 15:45] LABS: Protein, Total 7.5 g/dL (6.2-8.2)
[2025-02-13 15:51] LABS: % Iron Saturation 30.48 (12.00-45.00)
[2025-02-13 15:53] LABS: Hepatitis B Surface Antigen Nonreactive (Nonreactive); Hepatitis C IgG Antibody Nonreactive (Nonreactive)
[2025-02-13 16:18] LABS: Ceruloplasmin 38.5 mg/dL (20.0-60.0)
[2025-02-14 13:25] LABS: Smooth Muscle Antibody 4 UNITS (<20)
== END | disposition home or self-care (01) ==
LOC: LABWHC1 11:19
PROVIDERS: ATTEND Nurse Practitioner Family
DX: R74.8 Abnormal levels of other serum enzymes (principal)
CPT/HCPCS: 36415; 81596; 82103; 82390; 82728; 83516; 83540; 83550; 84165; 86038; 86803; 87340